=== PATIENT | male | born 1985 | race Caucasian/White ===

== ENCOUNTER 2016-06-27 16:08 | Emergency (ER) | payer SELFPAY ==
--- NOTE | 2016-06-27 19:07 | RAD ---
RIGHT FOOT THREE VIEWS 06/27/2016 HISTORY: Evaluate for foreign body. COMPARISON: None. FINDINGS: There is a round radiopaque marker along the plantar aspect of the foot. There is subja cent soft tissue swelling with no radiopaque foreign body seen. No displaced fracture or dislocatio n. IMPRESSION Radiopaque marker along the dorsal aspect of the foot with adjacent soft tissue swelling noted. No radiopaque soft tissue foreign body, fracture, or dislocation. POS: [facility]
[2016-06-27] MEDS ORDERED: Cephalexin 500 MG CAP ONE (19:31)
[2016-06-27] MEDS ORDERED: Sulfameth/Trimethoprim DS 800-160mg TAB ONE (19:31)
[2016-06-27] MEDS ORDERED: HYDROcodone/Acetaminophen 10/325 mg Tablet ONE (19:31)
--- NOTE | 2016-06-27 19:53 | ERRECORD ---
[facility] EMERGENCY RECORD HPI FOOT (19:25 LLDO) CHIEF COMPLAINT: Patient presents for evaluation of decreased range of motion, Patient presents for evaluation of injury, Patient presents for evaluation of pain, Patient presents for evaluation of swelling, Patient presents for evaluation of tenderness, Patient presents for evaluation of mid-sole of right foot. thinks he got a rock in the sock and now is stuck in his foot. swelling pus and red streaks up instep of foot. HISTORIAN: History provided by patient. MECHANISM OF INJURY: Known mechanism, No alcohol use associated with this incident, No drug use associated with this incident, No domestic violence associated with this incident. LOCATION: Symptoms are localized. QUALITY: Pain is dull in nature, described as aching. SEVERITY: Maximum severity of symptoms severe, Currently symptoms are moderate, MODERATE AT REST. TIME COURSE: Sudden onset of symptoms, Symptoms are worsening. ASSOCIATED WITH: Associated with erythema, Associated with open wounds, Associated with pain on walking. EXACERBATED BY: Patient's condition exacerbated by walking, Patient's condition exacerbated by bearing weight. RELIEVED BY: Patient's condition relieved by elevation, Patient's condition relieved by remaining still, Patient's condition relieved by rest. ROS CONSTITUTIONAL: Negative constitutional review of systems. (19:31 LLDO) EYES: Negative eye review of systems, Historian denies eye pain, denies eye redness, denies eye discharge. (19:34 LLDO) ENT: Negative ears, nose, throat review of systems, Historian denies otalgia, denies rhinorrhea, denies sinus pain, denies sore throat. (19:34 LLDO) MUSCULOSKELETAL: Negative musculoskeletal review of systems, Historian denies arthralgias, denies fall, denies injury, denies myalgias. (19:34 LLDO) SKIN: Historian reports cellulitis, reports skin changes, reports skin lesions. IN HPI. (19:31 LLDO) NEUROLOGIC: Negative neurologic review of systems, Historian denies confusion, denies focal weakness, denies mental status changes, denies sensory changes. (19:34 LLDO) ALLERGIC/IMMUNOLOGIC: Normal allergy/immunologic system review, Historian denies eczema, denies environmental allergies, denies food allergies. (19:34 LLDO) PSYCHIATRIC: Negative psychiatric review of systems, Historian denies alcohol abuse, denies anxiety, denies depression, denies drug abuse, denies hallucinations. (19:34 LLDO) NOTES: All systems reviewed, negative except as described above. &a-1R&a+25V*p+0X*t0579W*c202B*c15G*c2P*p-0X&a-25V&a+1R Name: Serg Schmitz : 1985 M30 MedRec: [id number] AcctNum: [id number] Prepared: MonJun 27, 2016 19:54 by Interface Page 1 of 4 pMD [facility] EMERGENCY RECORD (19:31 LLDO) PAST MEDICAL HISTORY MEDICAL HISTORY: Tetanus not up to date, No past medical history, Flu vaccine not up to date, Tetanus immunization up to date, Pneumococcal vaccine not up to date. (16:46 MDEB) MALE SURGICAL HISTORY: Patient has no surgical history. (16:46 MDEB) PSYCHIATRIC HISTORY: Notes: NONE. (16:46 MDEB) SOCIAL HISTORY: Patient denies alcohol use, Patient denies drug use, Patient drinks socially, rarely, Patient denies drug use, Patient currently uses tobacco, smokes cigarettes, daily, Patient has smoked for 10 years, Patient smokes 1 pack per day, Lives at home, with family. (16:46 MDEB) NOTES: Nursing records reviewed, Agree with nursing records, Medication list reviewed. (19:34 LLDO) KNOWN ALLERGIES No Known Drug Allergies CURRENT MEDICATIONS No recorded medications VITAL SIGNS (16:43 MDEB) VITAL SIGNS: BP: 105/69, Pulse: 106, Resp: 20, Temp: 97.4 (Tympanic), Pain: 10, O2 sat: 100 on Room Air, Time: 06/27/2016 16:43. PHYSICAL EXAM CONSTITUTIONAL: Vital Signs Reviewed, Patient afebrile, Pulse, tachycardic, 106, Blood pressure normal, Respiratory rate normal, Patient appears, uncomfortable, Patient appears, in moderate pain distress, Patient alert and oriented to person, place and time, Nursing notes reviewed. (19:31 LLDO) HEAD: Head exam normal, Head exam included findings of head atraumatic, normocephalic. (19:34 LLDO) EYES: Eye exam normal, Eye exam included findings of eyelids normal to inspection, Pupils equally round and reactive to light, Extraocular muscles intact. (19:34 LLDO) ENT: ENT exam normal, Ear exam normal, Nose exam normal. (19:34 LLDO) NECK: Neck exam normal, Neck exam included findings of normal range of motion, Trachea midline, no meningeal signs, no tenderness. (19:34 LLDO) BACK: Back exam normal, Back exam included findings of normal inspection, range of motion normal. (19:34 LLDO) UPPER EXTREMITY: Upper extremity exam normal, Upper extremity exam included findings of inspection normal, Range of motion normal. (19:34 LLDO) LOWER EXTREMITY: N-V INTACT. OTHERWISE, SEE HPI, No &a-1R&a+25V*p+0X*p4859P*c202B*c15G*c2P*p-0X&a-25V&a+1R Name: Serg Schmitz : 1985 M30 MedRec: [id number] AcctNum: [id number] Prepared: MonJun 27, 2016 19:54 by Interface Page 2 of 4 pMD [facility] EMERGENCY RECORD compartment involved, Patient is able to walk at least 4 steps. (19:31 LLDO) NEURO: Neuro exam normal, Neuro exam findings include patient oriented to person, place and time, Speech normal, Anne coma scale 15. (19:34 LLDO) SKIN: CELLULITIS NOTED ABOVE AND EARLY LYMPHANGITIS. (19:31 LLDO) PSYCHIATRIC: Psychiatric exam normal, Psychiatric exam included findings of patient oriented to person place and time, Normal affect, Judgment normal. (19:34 LLDO) MEDICATION ADMINISTRATION SUMMARY Drug Name: Cefanex, Dose Ordered: 500 mg, Route: Oral, Status: Given, Time: 19:48 06/27/2016, Drug Name: Triple Antibiotic topical ointment, Dose Ordered: 1 jesus, Route: Topical, Status: Given, Time: 19:40 06/27/2016, Drug Name: Septra DS, Dose Ordered: 1 tab(s), Route: Oral, Status: Given, Time: 19:35 06/27/2016, Drug Name: [place], Dose Ordered: 10-325 mg, Route: Oral, Status: Given, Time: 19:35 06/27/2016, Detailed record available in Medication Service section. PROBLEM LIST No recorded problems DIAGNOSIS (19:21 LLDO) FINAL: PRIMARY: abscess on foot, ADDITIONAL: Acute lymphangitis - RIGHT leg. PRESCRIPTION (19:22 LLDO) Keflex: CAPSULE (HARD, SOFT, ETC.) : 500 mg : ORAL : Quantity: 1 Unit: cap(s) Route: ORAL Schedule: 3 times a day Dispense: 30 May substitute. Refills: No Refills . NOTES: No Refills. Septra DS: TABLET : 800 mg-160 mg : ORAL : Quantity: 1 Unit: tab(s) Route: ORAL Schedule: 2 times a day (before meals) Dispense: 20 May substitute. Refills: No Refills . NOTES: ^s=No Refills No Refills. Tylenol-Codeine #3: TABLET : 300 mg-30 mg : ORAL : Quantity: 1-2 Unit: tab(s) Route: ORAL Schedule: every 4 hours prn Dispense: 24 Unit: tab(s) May substitute. Refills: No Refills . NOTES: ^s=^s=No Refills No Refills No Refills. &a-1R&a+25V*p+0X*f8132R*c202B*c15G*c2P*p-0X&a-25V&a+1R Name: Serg Schmitz : 1985 [facility] MedRec: [id number] AcctNum: [id number] Prepared: MonJun 27, 2016 19:54 by Interface Page 3 of 4 pMD [facility] EMERGENCY RECORD DISPOSITION PATIENT: Disposition Type: Discharge, Disposition: *Discharge Home. (19:21 LLDO) Patient left the department. (19:49 MDEB) Tucker: LLDO=MD Aldair, Sebastian MDEB=LUDMILA Duncan, Winnie &a-1R&a+25V*p+0X*e2611A*c202B*c15G*c2P*p-0X&a-25V&a+1R Name: Serg Schmitz : 1985 [facility] MedRec: [id number] AcctNum: [id number] Prepared: Joseph Jun 27, 2016 19:54 by Interface Page 4 of 4 pMD MTDD
--- NOTE | 2016-06-27 20:02 | PICIS ---
[facility] EMERGENCY RECORD TRIAGE (16:46 MDEB) PATIENT: NAME: Serg Schmitz, AGE: 30, GENDER: male, : Janelle 1985, TIME OF GREET: MonJun 27, 2016 16:09, PREFERRED LANGUAGE: [place], RACE: WHITE, ETHNICITY: Not or , ECODE BILLING MAP: [facility], SSN: [id number], Zip Code: [address], KG WEIGHT: 67.13, PHONE: , , , PERSON ID: [id number], PCP: NO PCP. (16:46 MDEB) TRIAGE NOTES: R FOOT POSS FB. (16:46 MDEB) COMPLAINT: RT KNEE & FOOT PAIN. (16:46 MDEB) ADMISSION: URGENCY: 4 Non Urgent, ADMISSION SOURCE: Home, TRANSPORT: Walk-in, BED: TRIAGE. (16:46 MDEB) ASSESSMENT: Assessment: SWELLING, ABCESS, REDNESS TO SURROUNDING TISSUE. (16:46 MDEB) PAIN: Patient complains of pain described as, aching, on a scale 0-10 patient rates pain as 10. (16:46 MDEB) IMMUNIZATIONS: Tetanus not up to date. (16:46 MDEB) TRIAGE SCREENING: Patient denies suicidal ideation, Patient denies presence of domestic violence. (16:46 MDEB) PROVIDERS: TRIAGE NURSE: Winnie Duncan RN. (16:46 MDEB) VITAL SIGNS: BP 105/69, Pulse 106, Resp 20, Temp 97.4, (Tympanic), Pain 10, O2 Sat 100, on Room Air, Time 06/27/2016 16:43. (16:43 MDEB) PREVIOUS VISIT ALLERGIES: No Known Drug Allergies. (16:46 MDEB) KNOWN ALLERGIES No Known Drug Allergies CURRENT MEDICATIONS No recorded medications VITAL SIGNS (16:43 MDEB) VITAL SIGNS: BP: 105/69, Pulse: 106, Resp: 20, Temp: 97.4 (Tympanic), Pain: 10, O2 sat: 100 on Room Air, Time: 06/27/2016 16:43. NURSING ASSESSMENT: EXTREMITY LOWER (16:46 MDEB) CONSTITUTIONAL: Patient arrives ambulatory, Gait steady, History obtained from patient, Patient appears, anxious, in distress due to pain, uncomfortable, Patient cooperative, Patient alert, Oriented to person, place and time, Skin warm, Skin dry, Skin normal in color, Mucous membranes pink, Mucous membranes moist, Patient is well-groomed, Patient complains of R FOOT POSS FB TO SOLE. PAIN: aching pain, to the right foot, SOLE OF FOOT, on a scale 0-10 patient rates pain as 10, Pain exacerbated by nothing, Nothing has been tried to alleviate the pain. LEFT LOWER EXTREMITY: Left lower extremity assessment findings include capillary refill less than 2 seconds, Skin color normal, Skin &a-1R&a+25V*p+0X*s9943G*c202B*c15G*c2P*p-0X&a-25V&a+1R Name: Serg Schmitz : 1985 M30 MedRec: [id number] AcctNum: [id number] Prepared: MonJun 27, 2016 20:01 by Interface Page 1 of 7 pMD [facility] EMERGENCY RECORD temperature warm, Distal sensation intact, Muscle tone normal. RIGHT LOWER EXTREMITY: Right lower extremity assessment findings include capillary refill less than 2 seconds, Skin color normal, Skin temperature warm, Distal sensation intact, Muscle tone normal, Inspection findings include lesion(s), to SOLE OF R FOOT, CALLUS APPPEARING LESION, Inspection findings include redness, to SURROUNDING TISSUES. NOTES: Emotional support needed and given, Patient tolerated procedure well. SAFETY: Cart/Stretcher in lowest position, Call light within reach, Hospital ID band on. NURSING PROCEDURE: DISCHARGE NOTE (19:45 GOVIND) DISCHARGE: Patient discharged to home, ambulating without assistance, family driving, accompanied by //partner, Summary of Care printed/ provided, Patient requested and was provided an electronic copy of Discharge Instructions, Transition record given to patient, Discharge instructions given to patient, Prescriptions given and instructions on side effects given, Above person(s) verbalized understanding of discharge instructions and follow-up care, Patient treated and evaluated by physician. BELONGINGS: Belongings remain with patient, Valuables remain with patient. NOTES: Emotional support needed and given, Patient tolerated procedure well. ORDER DETAILS Order Name: CLEAN WOUND, Status: Done, Time: 19:46 06/27/2016, User: GOVIND, - Ordered for: MD Quinteros Lloyd, - Entered by: MD Quinteros Lloyd - [facility] Jun 27, 2016 19:42, - Quantity: 1, Order Name: CRUTCH ACQUISTION AND INSTRUCTION ED, Status: Done, Time: 19:49 06/27/2016, User: GOVIND, - Ordered for: MD Quinteros Lloyd, - Entered by: MD Quinteros Lloyd - [facility] Jun 27, 2016 19:42, - Quantity: 1, Order Name: Culture & GS, Bacterial/Wound, Status: Active, Time: 19:19 06/27/2016, User: ANTWON, - Ordered for: MD Quinteros Lloyd, - Entered by: MD Quinteros Lloyd - [facility] Jun 27, 2016 19:19, - Quantity: 1, Order Name: XR Foot Rt 3 View STANDARD, Status: Active, Time: 16:46 06/27/2016, User: GOVIND, - Ordered for: MD Quinteros Lloyd, - Entered by: LUDMILA Duncan, Winnie - [facility] Jun 27, 2016 16:46, - Quantity: 1. MEDICATION ADMINISTRATION SUMMARY &a-1R&a+25V*p+0X*y7209P*c202B*c15G*c2P*p-0X&a-25V&a+1R Name: Serg Schmitz : 1985 M30 MedRec: [id number] AcctNum: [id number] Prepared: MonJun 27, 2016 20:01 by Interface Page 2 of 7 pMD [facility] EMERGENCY RECORD Drug Name: Cefanex, Dose Ordered: 500 mg, Route: Oral, Status: Given, Time: 19:48 06/27/2016, Drug Name: Triple Antibiotic topical ointment, Dose Ordered: 1 jesus, Route: Topical, Status: Given, Time: 19:40 06/27/2016, Drug Name: Septra DS, Dose Ordered: 1 tab(s), Route: Oral, Status: Given, Time: 19:35 06/27/2016, Drug Name: [place], Dose Ordered: 10-325 mg, Route: Oral, Status: Given, Time: 19:35 06/27/2016, Detailed record available in Medication Service section. MEDICATION SERVICE Cefanex: Order: Cefanex (cephalexin monohydrate) - Dose: 500 mg : Oral Schedule: Now Ordered by: Sebastian Quinteros MD Entered by: Sebastian Quinteros MD MonJun 27, 2016 19:30 Documented as given by: Winnie Duncan RN MonJun 27, 2016 19:48 Patient, Medication, Dose, Route and Time verified prior to administration. Amount given: 500 MG, Site: Medication administered P.O., Correct patient, time, route, dose and medication confirmed prior to administration, Patient advised of actions and side-effects prior to administration, Allergies confirmed and medications reviewed prior to administration, Patient in position of comfort, Side rails up, Cart in lowest position, Family at bedside. Norwalk: Order: [place] (hydrocodone bitartrate/acetaminophen) - Dose: 10-325 mg : Oral Schedule: Now Ordered by: Sebastian Quinteros MD Entered by: Sebastian Quinteros MD MonJun 27, 2016 19:30 Documented as given by: Winnie Duncan RN MonJun 27, 2016 19:35 Patient, Medication, Dose, Route and Time verified prior to administration. Amount given: 10/325 MG, Site: Medication administered P.O., Correct patient, time, route, dose and medication confirmed prior to administration, Patient advised of actions and side-effects prior to administration, Allergies confirmed and medications reviewed prior to administration, Patient in position of comfort, Side rails up, Cart in lowest position, Family at bedside. Septra DS: Order: Septra DS (sulfamethoxazole/trimethoprim) - Dose: 1 tab(s) : Oral Schedule: Now Ordered by: Sebastian Quinteros MD Entered by: Sebastian Quinteros MD MonJun 27, 2016 19:30 Documented as given by: Winnie Duncan RN MonJun 27, 2016 19:35 Patient, Medication, Dose, Route and Time verified prior to administration. Amount given: 1 TAB, Site: Medication administered P.O., Correct patient, time, route, dose and medication confirmed prior to &a-1R&a+25V*p+0X*n1789X*c202B*c15G*c2P*p-0X&a-25V&a+1R Name: Serg Schmitz : 1985 M30 MedRec: [id number] AcctNum: [id number] Prepared: MonJun 27, 2016 20:01 by Interface Page 3 of 7 pMD [facility] EMERGENCY RECORD administration, Patient advised of actions and side-effects prior to administration, Allergies confirmed and medications reviewed prior to administration, Patient in position of comfort, Side rails up, Cart in lowest position, Family at bedside. Triple Antibiotic topical ointment: Order: Triple Antibiotic topical ointment (neomycin sulfate/bacitracin zinc/polymyxin B) - Dose: 1 jesus : Topical Schedule: Now Repeat: 3 times a day Ordered by: Sebastian Quinteros MD Entered by: Sebastian Quinteros MD MonJun 27, 2016 19:43 Documented as given by: Winnie Duncan RN MonJun 27, 2016 19:40 Patient, Medication, Dose, Route and Time verified prior to administration. Amount given: 1 JESUS, Skin cleansed prior to administration, Shaving required prior to administration, Correct patient, time, route, dose and medication confirmed prior to administration, Patient advised of actions and side-effects prior to administration, Allergies confirmed and medications reviewed prior to administration, Advised not to ambulate without assistance, Patient in position of comfort, Side rails up, Cart in lowest position, Family at bedside. HPI FOOT (19:25 LLDO) CHIEF COMPLAINT: Patient presents for evaluation of decreased range of motion, Patient presents for evaluation of injury, Patient presents for evaluation of pain, Patient presents for evaluation of swelling, Patient presents for evaluation of tenderness, Patient presents for evaluation of mid-sole of right foot. thinks he got a rock in the sock and now is stuck in his foot. swelling pus and red streaks up instep of foot. HISTORIAN: History provided by patient. MECHANISM OF INJURY: Known mechanism, No alcohol use associated with this incident, No drug use associated with this incident, No domestic violence associated with this incident. LOCATION: Symptoms are localized. QUALITY: Pain is dull in nature, described as aching. SEVERITY: Maximum severity of symptoms severe, Currently symptoms are moderate, MODERATE AT REST. TIME COURSE: Sudden onset of symptoms, Symptoms are worsening. ASSOCIATED WITH: Associated with erythema, Associated with open wounds, Associated with pain on walking. EXACERBATED BY: Patient's condition exacerbated by walking, Patient's condition exacerbated by bearing weight. RELIEVED BY: Patient's condition relieved by elevation, Patient's condition relieved by remaining still, Patient's condition relieved by rest. ROS CONSTITUTIONAL: Negative constitutional review of systems. (19:31 LLDO) &a-1R&a+25V*p+0X*v3013J*c202B*c15G*c2P*p-0X&a-25V&a+1R Name: Serg Schmitz : 1985 M30 MedRec: [id number] AcctNum: [id number] Prepared: MonJun 27, 2016 20:01 by Interface Page 4 of 7 pMD [facility] EMERGENCY RECORD EYES: Negative eye review of systems, Historian denies eye pain, denies eye redness, denies eye discharge. (19:34 LLDO) ENT: Negative ears, nose, throat review of systems, Historian denies otalgia, denies rhinorrhea, denies sinus pain, denies sore throat. (19:34 LLDO) MUSCULOSKELETAL: Negative musculoskeletal review of systems, Historian denies arthralgias, denies fall, denies injury, denies myalgias. (19:34 LLDO) SKIN: Historian reports cellulitis, reports skin changes, reports skin lesions. IN HPI. (19:31 LLDO) NEUROLOGIC: Negative neurologic review of systems, Historian denies confusion, denies focal weakness, denies mental status changes, denies sensory changes. (19:34 LLDO) ALLERGIC/IMMUNOLOGIC: Normal allergy/immunologic system review, Historian denies eczema, denies environmental allergies, denies food allergies. (19:34 LLDO) PSYCHIATRIC: Negative psychiatric review of systems, Historian denies alcohol abuse, denies anxiety, denies depression, denies drug abuse, denies hallucinations. (19:34 LLDO) NOTES: All systems reviewed, negative except as described above. (19:31 LLDO) PAST MEDICAL HISTORY MEDICAL HISTORY: Tetanus not up to date, No past medical history, Flu vaccine not up to date, Tetanus immunization up to date, Pneumococcal vaccine not up to date. (16:46 MDEB) MALE SURGICAL HISTORY: Patient has no surgical history. (16:46 MDEB) PSYCHIATRIC HISTORY: Notes: NONE. (16:46 MDEB) SOCIAL HISTORY: Patient denies alcohol use, Patient denies drug use, Patient drinks socially, rarely, Patient denies drug use, Patient currently uses tobacco, smokes cigarettes, daily, Patient has smoked for 10 years, Patient smokes 1 pack per day, Lives at home, with family. (16:46 MDDARIEN) NOTES: Nursing records reviewed, Agree with nursing records, Medication list reviewed. (19:34 LLDO) PHYSICAL EXAM CONSTITUTIONAL: Vital Signs Reviewed, Patient afebrile, Pulse, tachycardic, 106, Blood pressure normal, Respiratory rate normal, Patient appears, uncomfortable, Patient appears, in moderate pain distress, Patient alert and oriented to person, place and time, Nursing notes reviewed. (19:31 LLDO) HEAD: Head exam normal, Head exam included findings of head atraumatic, normocephalic. (19:34 LLDO) EYES: Eye exam normal, Eye exam included findings of eyelids normal to inspection, Pupils equally round and reactive to light, Extraocular muscles intact. (19:34 LLDO) &a-1R&a+25V*p+0X*a6316T*c202B*c15G*c2P*p-0X&a-25V&a+1R Name: Serg Schmitz : 1985 M30 MedRec: [id number] AcctNum: [id number] Prepared: MonJun 27, 2016 20:01 by Interface Page 5 of 7 pMD [facility] EMERGENCY RECORD ENT: ENT exam normal, Ear exam normal, Nose exam normal. (19:34 LLDO) NECK: Neck exam normal, Neck exam included findings of normal range of motion, Trachea midline, no meningeal signs, no tenderness. (19:34 LLDO) BACK: Back exam normal, Back exam included findings of normal inspection, range of motion normal. (19:34 LLDO) UPPER EXTREMITY: Upper extremity exam normal, Upper extremity exam included findings of inspection normal, Range of motion normal. (19:34 LLDO) LOWER EXTREMITY: N-V INTACT. OTHERWISE, SEE HPI, No compartment involved, Patient is able to walk at least 4 steps. (19:31 LLDO) NEURO: Neuro exam normal, Neuro exam findings include patient oriented to person, place and time, Speech normal, [place] coma scale 15. (19:34 LLDO) SKIN: CELLULITIS NOTED ABOVE AND EARLY LYMPHANGITIS. (19:31 LLDO) PSYCHIATRIC: Psychiatric exam normal, Psychiatric exam included findings of patient oriented to person place and time, Normal affect, Judgment normal. (19:34 LLDO) EVENTS TRANSFER: Triage to Emergency Triage. (MonJun 27, 2016 16:46 MDEB) Emergency Triage to Waiting. (16:47 MDEB) Emergency Waiting to Main ED -01. (17:28 MDEB) Removed from Emergency Main ED -01. (19:49 MDEB) PROBLEM LIST No recorded problems DIAGNOSIS (19:21 LLDO) FINAL: PRIMARY: abscess on foot, ADDITIONAL: Acute lymphangitis - RIGHT leg. DISPOSITION PATIENT: Disposition Type: Discharge, Disposition: *Discharge Home. (19:21 LLDO) Patient left the department. (19:49 MDEB) INSTRUCTION (19:23 LLDO) DISCHARGE: ABSCESS, ABX ONLY, LYMPHADENITIS ANTIBIOTIC TREATMENT. FOLLOWUP: Follow up with Primary Care Physician in 7-10 days. SPECIAL: Follow-up with your PCP. PRESCRIPTION (19:22 LLDO) Keflex: CAPSULE (HARD, SOFT, ETC.) : 500 mg : ORAL : Quantity: 1 Unit: cap(s) Route: ORAL Schedule: 3 times a day Dispense: &a-1R&a+25V*p+0X*m7335F*c202B*c15G*c2P*p-0X&a-25V&a+1R Name: Serg Schmitz : 1985 M30 MedRec: [id number] AcctNum: [id number] Prepared: MonJun 27, 2016 20:01 by Interface Page 6 of 7 pMD [facility] EMERGENCY RECORD 30 May substitute. Refills: No Refills . NOTES: No Refills. Septra DS: TABLET : 800 mg-160 mg : ORAL : Quantity: 1 Unit: tab(s) Route: ORAL Schedule: 2 times a day (before meals) Dispense: 20 May substitute. Refills: No Refills . NOTES: ^s=No Refills No Refills. Tylenol-Codeine #3: TABLET : 300 mg-30 mg : ORAL : Quantity: 1-2 Unit: tab(s) Route: ORAL Schedule: every 4 hours prn Dispense: 24 Unit: tab(s) May substitute. Refills: No Refills . NOTES: ^s=^s=No Refills No Refills No Refills. ADMIN DIGITAL SIGNATURE: MD Quinteros Lloyd. (19:34 LLDO) MD Quinteros Lloyd. (19:43 LLDO) Tucker: LLDO=MD Quinteros Lloyd MDEB=LUDMILA Duncan, Winnie &a-1R&a+25V*p+0X*o0059C*c202B*c15G*c2P*p-0X&a-25V&a+1R Name: Serg Schmitz : 1985 M2 MedRec: [id number] AcctNum: [id number] Prepared: MonJun 27, 2016 20:01 by Interface Page 7 of 7 pMD [facility] MEDICATION RECONCILIATION You were seen in the Emergency Department on: MonJun 27, 2016 KNOWN ALLERGIES No Known Drug Allergies MEDICATIONS GIVEN WHILE IN THE EMERGENCY DEPARTMENT [place] (hydrocodone bitartrate/acetaminophen) - Dose: 10-325 milligram(s) : Oral Septra DS (sulfamethoxazole/trimethoprim) - Dose: 1 tab(s) : Oral Cefanex (cephalexin monohydrate) - Dose: 500 milligram(s) : Oral Triple Antibiotic topical ointment (neomycin sulfate/bacitracin zinc/polymyxin B) - Dose: 1 application : Topical Notes from the emergency department Reviewed with family Reviewed with patient PRESCRIPTIONS (3) Printed (3) Keflex : CAPSULE (HARD, SOFT, ETC.) : 500 mg : ORAL Quantity: 1, Unit: cap(s), Route: ORAL, Schedule: 3 times a day, Dispense: 30 Septra DS : TABLET : 800 mg-160 mg : ORAL Quantity: 1, Unit: tab(s), Route: ORAL, Schedule: 2 times a day (before meals), Dispense: 20 &a-1R&a+25V*p+0X*g5344P*c202B*c15G*c2P*p-0X&a-25V&a+1R Name: Serg Schmitz : 1985 M30 MedRec: [id number] AcctNum: [id number] Prepared: MonJun 27, 2016 20:01 by Interface Kev MALIN
== END 2016-06-27 19:45 | disposition home or self-care (01) ==
LOC: MADERS 16:08
DX: L02.611 Cutaneous abscess of right foot (principal); L03.125 Acute lymphangitis of right lower limb; F17.210 Nicotine dependence, cigarettes, uncomplicated
CPT/HCPCS: 87070; 87077; 87186; 87205; 99283